=== PATIENT | male | born 1970 | race Caucasian/White ===

== ENCOUNTER 2016-04-13 17:48 | Emergency (ER) | payer OTHER ==
[~2016-04-13] VITALS: Ht 185.4 cm; Wt 110.4 kg
[2016-04-13 17:50] VITALS: TEMP 37; Ht 185.4 cm; Wt 110.4 kg
[2016-04-13] MEDS ORDERED: OXYCODONE/ACETAMINOPHEN 5-325 TAB PO STA (18:10)
[2016-04-13 18:21] VITALS: BP 137/90; PULSE 77; O2SAT 95
[2016-04-13] MEDS ORDERED: VLT500 PO (18:27)
[2016-04-13] MEDS ORDERED: OXYC-57 PO (18:33)
--- NOTE | 2016-04-13 18:35 | EMERGENCY ROOM VISIT NOTE ---
History First contact with patient: 17:53 Chief Complaint: CALF PAIN Stated Complaint: POPPING OF R CALF FOLLOWED BY IMMENSE PAIN History of Present Illness The patient is a 45 year old male who presents to the Emergency Room with complaints of right calf pain. The patient states that he was running approximately one and half hours ago when he felt a sudden popping sensation and pain in his right calf. He states it felt like someone shot him in the calf. He has had difficulty walking and intense pain in the calf since then. He rates the discomfort at 8/10. He denies any previous injuries. The patient does report a history of right knee problems and has seen orthopedics regarding this. He did receive an injection in the right knee 2 months ago. The patient is concerned because he states he took 2 doses of ciprofloxacin for urinary symptoms 1 week ago. He states that he read on the Internet that this may cause tendon rupture. The patient denies any numbness or weakness. He denies any other injuries. Review of Systems A complete 6 Review of Systems was discussed with the patient, with pertinent positives and negatives listed in the History of Present Illness. All remaining Review of Systems questions can be considered negative unless otherwise specified. Social History Smoking Status: Never Smoker Current/Historical Medications Scheduled Valacyclovir HCl (Valacyclovir HCl), 500 MG PO DAILY Scheduled PRN Oxycodone/Acetaminophen 5MG/325MG (Percocet 5MG/325MG), 1-2 TABS PO Q4H PRN for Pain Allergies Uncoded Allergies: PENICILLIN (Allergy, Severe, ANAPHYLAXIS, 04/13/16) Physical Exam Vital Signs Date Time Temp Pulse Resp B/P Pulse Ox O2 Delivery O2 Flow Rate FiO2 04/13/16 18:21 77 18 137/90 95 Room Air 04/13/16 17:50 37.0 81 18 147/87 97 Room Air Physical Exam VITALS: Vitals are noted on the nurse's note and reviewed by myself. Vital signs stable. GENERAL: This is a 45-year-old male, in no acute distress, nondiaphoretic, well- developed well-nourished. SKIN: No erythema, warmth or ecchymosis. MUSCULOSKELETAL: There is no obvious deformity. There is some edema and significant tenderness of the medial aspect of the proximal right gastrocnemius muscle. Patient has full plantar flexion but decreased dorsiflexion. NEURO: Patient was alert and oriented to person place and time. Normal sensation to light and sharp touch. Deep tendon reflexes 2+. Medical Decision & Procedures Medications Administered Medications (Trade) Dose Ordered Sig/Renetta Route Start Time Stop Time Status Last Admin Dose Admin Oxycodone/ Acetaminophen (Percocet 5-325mg Tab) 1 tab NOW STAT PO 04/13/16 18:10 04/13/16 18:11 DC 04/13/16 18:21 1 TAB Medical Decision Differential diagnosis includes tendon rupture, gastrocnemius tear, gastrectomy strain, among others. The patient was evaluated as above. Clinically, he has an injury to the medial aspect of the proximal right gastrocnemius muscle. I do not feel any imaging is necessary at this time. The patient is established with [facility] and was instructed to follow-up with them this week for further evaluation. He was placed in an Eliecer wrap and given crutches. He was given 1 Percocet tablet here as well as a short prescription. He was instructed to take anti-inflammatories and ice the area frequently. He verbalized understanding of my assessment and treatment plan and was discharged home in good condition. [place] Drug Monitoring Program Search Results: patient reviewed within database Impression Primary Impression: Injury of calf Departure Information Dispostion Home / Self-Care Condition GOOD Prescriptions Oxycodone/Acetaminophen 5MG/325MG (PERCOCET 5MG/325MG) Tab 1-2 TABS PO Q4H Y for Pain, #15 TAB For Initial Treatment Prov: Casie Petersen .SAURABH 04/13/16 Referrals Jackson Goodrich M.D. (PCP) Дмитрий Hitchcock M.D. Patient Instructions My [facility] Additional Instructions You have been treated in the Emergency Department for a Calf Injury. You have received pain medicine in the emergency department which impairs your ability to operate a vehicle. It is illegal for you to drive after receiving these medicines. You have been prescribed Percocet to be used for pain control. This is a narcotic medication. You cannot drive or consume alcohol while on this medicine. This medicine should only be used for pain that cannot be controlled with csan-xsq-gcfziwu pain medicines. For pain control, you can use the following psef-rfc-gnntqxi medicines (if >12 yo): - Regular strength (325mg/tab) Tylenol (acetaminophen) 2 tabs every 4-6 hours as needed. Do not exceed 12 tablets in a 24 hour period. Avoid taking more than 4 grams (4000 mg) of Tylenol per day. This includes any other sources of acetaminophen you may take on a regular basis. - Regular strength (200 mg/tab) Advil (ibuprofen) 1-2 tabs every 4-6 hours as needed. Do not exceed a dose of 3200 mg per day. If this is a recent injury (<24 hrs), ice can be applied to the area of pain for the first 3 days to help decrease pain and inflammation. You have been provided the number for an Orthopaedic Surgeon. You should call this number as soon as possible to establish a follow-up visit from today's Emergency Department visit. Use the crutches to keep weight off of the affected leg until follow-up with orthopedics. Return to the Emergency Department if your current symptoms worsen despite treatment course outlined above, or if you develop any of the following symptoms : intractable pain despite aforementioned treatment course or new onset of numbness or tingling of the foot.
== END 2016-04-13 18:51 | disposition home or self-care (01) ==
LOC: C.EDB 17:50 → C.EDD 18:51
DX: S89.91XA Unspecified injury of right lower leg, initial encounter (principal); X58.XXXA Exposure to other specified factors, initial encounter; Z79.899 Other long term (current) drug therapy; Z88.0 Allergy status to penicillin

== ENCOUNTER → 2016-04-14 | Outpatient (CLI) | payer OTHER ==
[~2016-04-14] MED LIST: OXYC-57 PO; VLT500 PO
--- NOTE | 2016-04-14 13:08 | DIAGNOSTIC IMAGING REPORT ---
RIGHT TIBIA AND FIBULA 2 VIEWS CLINICAL HISTORY: Calf pain. Recent injury. FINDINGS: AP and lateral views of the right tibia and fibula are obtained. No prior studies are available for comparison at the time of dictation. The skeletal structures are well mineralized. No fracture is seen in the right tibia or fibula. The knee and ankle joints are grossly maintained. Minimal soft tissue edema is suggested in the calf. IMPRESSION: Minimal soft tissue edema is suggested in the calf. No acute bony abnormality is identified in the right tibia or fibula. Electronically signed by: Roger Hinton M.D. 04/14/2016 1:07 PM Dictated Date/Time: 04/14/2016 1:06 PM
== END | disposition home or self-care (01) ==
LOC: C.RDSM 11:11
PROVIDERS: ATTEND Physical Medicine & Rehabilitation Sports Medicine
DX: M79.661 Pain in right lower leg (principal)

== ENCOUNTER → 2016-11-19 | Outpatient (CLI) | payer OTHER ==
[~2016-11-19] VITALS: Ht 185.4 cm; Wt 107.1 kg
[~2016-11-19] MED LIST changes: -OXYC-57 PO
[2016-11-19 13:55] VITALS: BP 124/82; PULSE 80; Ht 185.4 cm; Wt 107.1 kg
== END | disposition home or self-care (01) ==
LOC: C.NEUR 13:30
PROVIDERS: ATTEND Internal Medicine Pulmonary Disease
DX: R41.3 Other amnesia (principal); G47.33 Obstructive sleep apnea (adult) (pediatric)

== ENCOUNTER → 2016-11-30 | Outpatient (CLI) | payer OTHER ==
--- NOTE | 2016-12-01 07:51 | PAP/PSG TECHNICIAN REPORT ---
[facility] Supervisor Vendor Quality Polysomnogram Report Study name: None Report date: 12/01/2016 Study date: 11/30/2016 Referring Physician: Jackson Goodrich M.D. Name: EMILY GARZA Interpreting Physician: Eric Silveira D.O. Date of : 1970 Supervisor Vendor Quality: Kathleen Akbar, PSGT. Sex: Male Age: 46 StudyType: PSG Weight: 235 lbs Height: 46 years, Height 6' 1" BMI: 31 Medications: Temazepam 30 mg. Patient History 46 yr. old male presents to the sleep lab for a diagnostic sleep study. Pt. states that he has memory dysfunction, and impaired daytime functioning. States that he falls asleep easily, but wakes often until 3 am when he gets up for the day. Patient states that he does not nap during the day.Ess = 12. Parameters Monitored NPSG: E1-M2, E2-M1, Fp1-M2, Fp2-M1, F3-M2, F4-M2, F4-M1, C3-M2, C4-M2, C4-M1, O1-M2, O2-M2, O2-M1, T3-M2, T4-M1, P3-M2, P4-M1, CHIN1, CHIN2, HR, EKG, Legs, PFLOW, SNOR, FLOW, CFLOW, Tidal Volume, THOR, ABDO, SpO2, PLTH, CPRESS, ETCO2 Wave, ETCO2, pH Sleep Architecture Sleep Stages Time at Lights Off 9:38:45 PM STAGES Time (min.) TST (%) Time at Lights On 3:56:45 AM Wake 97.0 -- Total Recording Time (TRT) 377.00 min. N1 32.5 12 Total Sleep Period (TSP) 372.5 min. N2 170.5 61 Total Sleep Time (TST) 280.0min. N3 16.0 6 Awake Time 97.0 min. REM 61.0 22 Wake after Sleep Onset 95.5 min. Sleep Efficiency (SE) 74 % Sleep Onset Latency (WILLIAM) 2.5 min. Number of Stage 1 Shifts None Awakenings 9 Stage Changes 36 Number of REM periods 3 REM 61.0 22 REM Latency 75.0 min. NREM 219.0 78 Body Position Analysis Supine Right Left Side Prone Vertical Total Sleep Time (min.) 212.8 87.9 9.0 96.88 0.0 0.0 Total Sleep Time (%) 65% 31% 3% 35 0% N/A% Total Sleep Time REM (min.) 35.8 25.2 0.0 None 0.0 0.0 Total Sleep Time NREM (min.) 147.3 62.7 9.0 None 0.0 0.0 Intermittent Wake (min.) 29.6 0.0 67.4 None 0.0 0.0 Total Sleep Period (%) 56% None None None None None Arousals Myoclonus (PLM) * Events Count Index Events Count Index Spontaneous 32 7 Events Awake (PLMW) 4 2.5 Respiratory 4 0.9 Events Asleep w/ Arousal (PLMA) 5 1.1 PLM 5 1 Events Asleep w/o Arousal (PLMS) 69 14.8 Snoring 3 1 Total Asleep 74 15.9 Total 44 9 Total 78 12 Respiratory Analysis * CA OA MA CH H RERA Total Count 0 1 0 0 31 0 32 Index 0.0 0.2 0.0 0 6.6 0 6.9 Mean Duration 0.0 12.3 0.0 0.00 28.6 0.0 28.1 Longest Duration 0.0 12.3 0.0 0.00 0.0 0.0 57.9 Respiratory Event Summary Total Supine ~Supine Right Left Prone REM NREM Apneas Count 1 1 0 0 0 N/A 0 1 Index 0.2 0 0 0.0 0.0 N/A 0 0 Hypopneas (4% Desat) Count 31 31 0 0 0 N/A 15 16 Index 6.6 10.2 0 0.0 0.0 N/A 14.8 4.4 Apneas & All Hypopneas Count 32 32 0 0 0 N/A 15 17 Index 6.9 10 0 0 0 N/A 14.8 4.7 Respiratory Events (Inbound Ingredient Logistics Specialist+All Hyp+RERA) Count 32 32 0 0 0 N/A 15 17 Index 6.9 10 0 0.0 0.0 N/A 14.8 4.7 Respiratory Related Arousal Count 4 32 0 0 0 N/A 2 2 Index 0.9 1 0 0 0 N/A 2 1 Snoring Analysis Supine Right Left Prone REM NREM Total Snore duration 15.0 min Snores count 592 39 2 N/A 119 514 633 Snore mean duration 1.4 Sec Snores index 194 27 13 N/A 117.0 140.8 135.6 TST with snoring (%) 5.3% Desaturation Event Summary: Minimum %SpO2 Event Count Mean/Min/Max Duration(sec.) Desaturation Index % Time In Bed > 90 31 30.0 / 9.5 / 60.0 5.5 94.9 86 - 90 0 N/A 0.0 4.5 81 - 85 0 N/A 0.0 0.6 76 - 80 0 N/A 0.0 0.0 71 - 75 0 N/A 0.0 0.0 66 - 70 0 N/A 0.0 0.0 61 - 65 0 N/A 0.0 0.0 56 - 60 0 N/A 0.0 0.0 51 - 55 0 N/A 0.0 0.0 < 50 0 N/A 0.0 0.0 Total REM NREM Awake <50% 0.0 min. 0.0 min. 0.0 min. 0.0 min. 51 - 60% 0.0 min. 0.0 min. 0.0 min. 0.0 min. 61 - 70% 0.0 min. 0.0 min. 0.0 min. 0.0 min. 71 - 80% 0.0 min. 0.0 min. 0.0 min. 0.0 min. 81 - 90% 18.2 min. 5.2 min. 10.3 min. 2.7 min. 91 - 100% 340.6 min. 55.6 min. 195.9 min. 89.1 min. Average 93 93 93 94 Minimum SpO2 71 85 82 71 Desaturation Event Index 4.9 15.7 4.1 0.0 # Desat. Events below 89% 5 4 1 N/A Time(%) with Saturation below 89% 1.0 0.3 0.3 0.3 Time(min.) with Saturation below 89% 3.4 1.2 1.2 1.1 Time (mins) REM (mins) NREM (mins) % of TST SpO2 Below 90% 16 11 N5 1.8 SpO2 Below 88% 2 0 0 1 Heart Rate Analysis Min (bpm) Max (bpm) Average (bpm) Awake 52 127 63 NREM 51 87 62 REM 54 92 63 Overall 51 92 62 Supplemental O2 Values Minimum O2 level: None Value Start Time End Time Supervisor Vendor Quality Comments PSG Study Mr. Garza slept in the right, left, and supine positions. No cardiac arrhythmia or PLM's noted. No bruxism noted. Snoring was noted and scored as a 2 on a scale of 1 through 5. (0=no snoring, 5=snoring loud enough to be heard through a closed door or down the ordonez way) awoke to use the restroom zero times during the night. Mr. Garza stated, I did not sleep as well as I do when I am in my own bed. The final report will be interpreted and signed by a sleep physician. The completed physician report will then be placed in the patient medical record. Therapy (cm H2O) 0 TIB (min.) 377.0 TST (min.) 280.0 Sleep Onset (min.) 2.5 REM Onset From Sleep (min.) 75.0 Sleep Efficiency % 74 Wakefulness (%) 26 Wakefulness (min.) 97.0 NREM 1 (%) 12 NREM 1 (min.) 32.5 NREM 2 (%) 61 NREM 2 (min.) 170.5 NREM 3 (%) 6 NREM 3 (min.) 16.0 REM (%) 22 REM (min.) 61.0 # Arousals 44 Arousal Index 9 # Snore 633 Snore Index 135.6 AHI 6.9 AHI Supine 10 AHI Non-Supine 0 NREM AHI 4.7 REM AHI 14.8 RDI 6.9 # Obstructive Apnea 1 # Central Apnea 0 # Mixed Apnea 0 # Hypopneas 31 RERAs 0 Total Respiratory Events 33 Time Below SpO2 89% (min.) 2.3 Mean NREM SpO2 (%) 93 Mean REM SpO2 (%) 93 Mean Sleep SpO2 (%) 93 Min NREM SpO2 (%) 82 Min REM SpO2 (%) 85 Position Supine (min.) 212.8 Position Non-supine (min.) 96.9 LM Index Sleep 15.9 LM Index NREM 18.6 LM Index REM 5.9 Mean Heart Rate (bpm) 62 Min Heart Rate (bpm) 51
--- NOTE | 2016-12-01 17:05 | Sleep Study ---
Sleep Study Report Date of Service: 11/30/2016 Sleep Study Report Clinical data: The patient is a 46-year-old male. He has a chief complaint of disturbed nocturnal sleep and memory problems. The patient has difficulty sleeping after 3 a.m.. He had 2 prior sleep studies done. The 1st 1 in 2010 in [place] reported mild sleep apnea. The 2nd study done in [place] did not show sleep apnea. The patient completed the [place] Sleepiness Scale and had a score of 13. His BMI is elevated at 31. The patient however is very physically fit in spite of the BMI. This was an in-lab diagnostic polysomnography. Sleep architecture: The total sleep period was 372.5 minutes. The total sleep time was 280.0 minutes. The sleep efficiency was moderately reduced to 74 percent. The sleep latency was short at 2.5 minutes. Wake after sleep onset was elevated to 95.5 minutes. The sleep latency was 75 minutes. Sleep consisted of stage N1 12 percent, stage N2 61 percent, stage N3 6 percent , stage REM 22 percent. Arousal data: The patient had a total of 44 arousals including 32 spontaneous arousals, 4 respiratory arousals, 5 PLM arousals, and 3 snoring arousals. The arousal index was 9. PLM data: The patient had a total of 74 periodic limb movements of sleep for a PLM index of 15.9. There were 5 arousals associated with limb movements for a PLM arousal index of 1.1. EKG: The underlying cardiac rhythm was normal sinus. The cardiac rates ranged from 51 to 92 beats per minute. The average heart rate was 62 beats per minute. No arrhythmia was seen. Respiratory data: The patient had a total of 32 respiratory events including 1 obstructive apnea and 31 hypopneas. Hypopneas were scored according to the 4 percent desaturation rule. The longest apnea was 12.3 seconds. The mean duration of the hypopneas was 28.6 seconds. The apnea-hypopnea index was 6.9 events per hour. This reflects mild sleep apnea. Oximetry data: The average saturation was 93 percent. The minimum saturation recorded was 71 percent. This clearly was technical however. He had only 2 minutes with saturations less than 88 percent. Tool Engine Lathe Set Up Operator comments: The patient slept on the right, left, and supine positions. No cardiac arrhythmia noted. No bruxism noted. Snoring was noted and scored as a 2 on a scale of 1 through 5. The patient indicated he did not sleep as well as he does in his own bed. Impressions: 1. Obstructive sleep apnea-mild 2. Periodic limb movement disorder Comments: This sleep on the night of the sleep study parallels with what the patient's history was. He falls asleep readily. He sleeps for approximately an hour and then has an awakening. Ultimately keeps waking up and then subsequently cannot sleep. He had very little sleep after 2:40 a.m.. He did have mild obstructive sleep apnea. It seems unlikely that this degree of sleep apnea would be accounting for his insomnia as well as his memory issues. However improvement with treatment cannot be excluded. Thus consideration is given to treatment with nasal CPAP therapy as a trial basis to see if his symptoms improved. His oxygenation was not significantly abnormal. He had a modest number of limb movements but with few arousals. It seems unlikely the limb movements are a significant contributor to his symptoms. Recommendations: 1. Consideration is given to a trial of nasal CPAP. This could be done by a CPAP titration in the sleep lab or with treatment with auto CPAP. 2. Weight loss is advised in light of the elevation of body mass index at 31. 3. Further suggestions may be made following the trial of nasal CPAP. 4. The patient should be advised the appropriate principles of sleep hygiene including having a regular sleep-wake schedule and attempting to increase his total sleep time. Copies To 1: Jackson Goodrich M.D.; Eric Silveira,
== END | disposition home or self-care (01) ==
LOC: C.NEUR 21:00
PROVIDERS: ATTEND Internal Medicine Pulmonary Disease
DX: G47.33 Obstructive sleep apnea (adult) (pediatric) (principal)

== ENCOUNTER → 2017-02-04 | Outpatient (CLI) | payer OTHER ==
[~2017-02-04] VITALS: Ht 185.4 cm; Wt 109.3 kg
[2017-02-04 11:13] VITALS: BP 137/87; PULSE 72; Ht 185.4 cm; Wt 109.3 kg
== END | disposition home or self-care (01) ==
LOC: C.NEUR 11:00
PROVIDERS: ATTEND Internal Medicine Pulmonary Disease
DX: G47.33 Obstructive sleep apnea (adult) (pediatric) (principal)

== ENCOUNTER → 2017-04-16 | Outpatient (CLI) | payer OTHER ==
--- NOTE | 2017-04-16 08:42 | DIAGNOSTIC IMAGING REPORT ---
R LOWER EXT JOINT WITHOUT CLINICAL HISTORY: 46 years-old Male presenting with RIGHT KNEE PAIN. TECHNIQUE: Multisequence, multiplanar MR imaging of the right knee was performed without the use of intravenous contrast. IV contrast: None. COMPARISON: Radiographs from 12/25/2016. FINDINGS: Localizer images: Unavailable. No bony edema. Bone island noted in the lateral femoral condyle. Full-thickness articular cartilage loss at the medial most aspect of the medial tibial plateau with subchondral cystic change. Osteophytosis also noted. Minimal increased signal intensity and irregularity of the lateral facet of the patellar cartilage. No irregularity of the apposing trochlear cartilage. Complex tear of the posterior horn body junction of the medial meniscus, which approaches the inferior articular surface. Significant attenuation of the body of the medial meniscus, which is slightly extruded laterally. There is suspected disruption of the meniscofemoral ligamentous attachment of the medial meniscus. The anterior horn is largely preserved. Degenerative changes of the posterior horn of the lateral meniscus suspected. Anterior and posterior cruciate ligaments intact. Medial collateral ligament intact. Lateral collateral ligament complex including the biceps femoris tendon, fibular collateral ligament, popliteus tendon, and iliotibial band intact. Quadriceps and patellar tendons intact. Small knee joint effusion. No popliteal cyst. Normal muscle bulk and muscle signal intensity. IMPRESSION: 1. Complex tear of the posterior horn body junction with severe attenuation of the medial meniscal body and suspected disruption of the medial meniscofemoral ligament. 2. Degenerative changes of the posterior horn of the lateral meniscus. 3. Full thickness articular cartilage loss with subchondral cystic change and osteophytosis at the medial aspect of the medial tibial plateau. 4. Minimal degenerative changes of the lateral patellar facet articular cartilage. 5. Small knee joint effusion. Electronically signed by: Дмитрий Martin M.D. 04/16/2017 8:41 AM Dictated Date/Time: 04/16/2017 8:35 AM
== END | disposition home or self-care (01) ==
LOC: C.MRIBC 07:38
PROVIDERS: ATTEND Family Medicine
DX: M17.11 Unilateral primary osteoarthritis, right knee (principal)

== ENCOUNTER → 2017-04-23 | Outpatient (CLI) | payer OTHER ==
[~2017-04-23] MED LIST changes: +HYDR-5688 PO; +TEMA7.5C13 PO
== END | disposition home or self-care (01) ==
LOC: C.RDSM 04:04
PROVIDERS: ATTEND Orthopaedic Surgery
DX: M25.561 Pain in right knee (principal)

== ENCOUNTER → 2017-05-10 | Day surgery (SDC) | payer OTHER ==
[2017-04-29 07:31] VITALS: Ht 185.4 cm; Wt 106.8 kg
[~2017-05-10] VITALS: Ht 185.4 cm; Wt 106.8 kg
[~2017-05-10] MED LIST changes: +ATROPINE SULFATE 0.1 MG/ML 5ML SYR IV PRN; +DEXAMETHASONE SOD INJ 4 MG/ML VIAL ONE; +EpHEDrine SULFATE INJ 50 MG/ML AMP IV PRN; +EpINEphrine INJ 1MG/ML AMP 1 MG/ML AMP ONE; +FENTANYL CITRATE INJ 50 MCG/1 ML 2 ML VIAL ONE; +HYDROmorphone INJ 1 MG/ML SYR IV PRN; +LACTATED RINGER'S 1000ML 1,000 ML IV SCH; +LIDO 2%/EPINEPHRINE 1:100000 20 ML VIAL INFIL ONE; +LIDOCAINE HCL 2% 2 ML VIAL (20MG/ML) ONE; +METOCLOPRAMIDE HCL INJ 5 MG/ML 2 ML VIAL IV PRN; +MIDAZOLAM HCL 1 MG/ML 2ML VIAL ONE; +MoRPHine SULFATE 2 MG/ML CARP IV PRN; +MoRPHine SULFATE 4 MG/ML 1 ML CARP\\VIAL IV PRN; +ONDANSETRON INJ 2 MG/ML 2 ML VIAL IV PRN; +ONDANSETRON INJ 2 MG/ML 2 ML VIAL ONE; +OXYCODONE/ACETAMINOPHEN 5-325 TAB ONE; +OXYCODONE/ACETAMINOPHEN 5-325 TAB PO PRN; +PROPOFOL IV EMULSION 10 MG/ML 20 ML VIAL IV ONE; +ROPIVACAINE 0.5% 5 MG/ML 30 ML VIAL ONE; +SODIUM CHLORIDE 0.9% 1000ML 1,000 ML IV SCH
[2017-05-10] MEDS: CLINDAMYCIN PHOS 150 MG/ML 2 ML VIAL IV SCH ×2 (08:39→09:04)
--- NOTE | 2017-05-10 09:21 | History & Physical Bridge - SC ---
H&P Re-Evaluation Bridge Note: I have examined the patient, reviewed the History & Physical and in the interval since the performance of the History & Physical I have noted the following changes of clinical significance: No changes noted
--- NOTE | 2017-05-10 11:30 | [facility] Post Operative Brief Note ---
Immediate Operative Summary Operative Date May 10, 2017. Pre-Operative Diagnosis Right Knee Medial Meniscus Tear, Proximal Tibia Subchondral Fracture Post-Operative Diagnosis same as preop Procedure(s) Performed Right Knee Arthroscopic Partial Medial Meniscectomy, injection of Calcium Phospate Cement To Treat Right Proximal Tibia Fracture Surgeon Dr. Levine Rodent Control Worker Surgeon(s) SAURABH Mancera Estimated Blood Loss 25ML Findings Consistent with Post-Op Diagnosis Fluids (cc crystalloids) 650 cc Specimens none Drains None Anesthesia Type General Complication(s) Extrusion of cement into soft tissues - removed through posteromedial approach to the knee Disposition Accompanied Pt To Recovery: no Disposition: Recovery Room / PACU
--- NOTE | 2017-05-10 11:45 | [facility] Operative Report ---
Operative Report Operative Date May 10, 2017. Pre-Operative Diagnosis Right Knee Medial Meniscus Tear, Proximal Tibia Subchondral Fracture Post-Operative Diagnosis same as preop Procedure(s) Performed Right Knee Arthroscopic Partial Medial Meniscectomy, injection of Calcium Phospate Cement To Treat Right Proximal Tibia Fracture Surgeon Dr. Levine Lithographic Platemaker Surgeon(s) SAURABH Mancera Estimated Blood Loss 25ML Fluids 650 cc Specimens none Drains None Anesthesia Type General Complication(s) Extrusion of cement into soft tissues - removed through posteromedial approach to the knee Disposition no Recovery Room / PACU I attest to the content of the Intraoperative Record and any orders documented therein. Any exceptions are noted below.
--- NOTE | 2017-05-10 11:49 | Discharge Instructions ---
Discharge Instructions Date of Service May 10, 2017. Admission Reason for Admission: Right Knee Medial Meniscus Tear, Proximal Tibia Fx Discharge Discharge Diagnosis / Problem: Right knee medial meniscus tear, Prox tibia fx Discharge Goals Goal(s): Decrease discomfort, Improve function, Increase independence Activity Recommendations Activity Limitations: as noted below Lifting Limitations: none Exercise/Sports Limitations: until after follow-up appointment May Resume Sexual Activity: when tolerated Shower/Bathe: tomorrow, keep incision dry Driving or Machine Use: No driving until cleared by provider education specialist Weightbearing Status: Right weightbearing (as tolerated with crutch aide) . Instructions / Follow-Up Instructions / Follow-Up Post-operative Instructions Dear Patient and Family/Friends, Before you are discharged from the hospital, it is important to know what to expect when you get home after surgery. To that end, we have created this sheet of discharge instructions which covers many commonly asked questions. Make sure you go through this sheet in its entirety with your nurse before you are discharged. Please note that we will go over the specifics of your surgery and recovery when you return for your first post-operative visit. Sincerely, Dr. Carpenter Pain Expect to be in a fair amount of pain after surgery. Remember, our goal is not to eliminate your pain, but to make it tolerable. It is a good idea to stay ahead of your pain by taking the medications you were prescribed once you get home. Typically, the pain starts improving 3-7 days after surgery. You should start weaning off the narcotic pain medication (oxycodone, hydrocodone, hydromorphone, morphine) as soon as your pain improves. Please call our office if your pain is not adequately controlled. Ice Ice your operative site at least 5 times a day for 15-30 minutes at a time. Make sure you have a thin cloth between the ice or cooling unit and your skin to prevent walker bite. This is especially important if you received a nerve block. Continue icing your operative site for the first 5-7 days after surgery , then as needed. Diet/Nausea/Vomiting Start by drinking clear liquids and eating crackers. If you can tolerate this, then you may resume your normal diet. If you feel nauseated or vomit, take Zofran/ondansetron (if prescribed). Please call our office if you have intractable nausea or vomiting, or, if after hours, you may go to the Emergency Room for help. Constipation Constipation is a common side effect of narcotic pain medication. If you have not had a bowel movement within 2 days after surgery, we recommend purchasing an over the counter laxative such as Milk of Magnesia, Dulcolax, or Miralax from a local pharmacy, and taking it as instructed. Call our clinic if any questions. Slings and Braces If you were placed in a sling or brace, it must be worn at all times, including sleep. You may remove your sling or brace for physical therapy, home exercises , and showering. The length of time you will be in your brace and range of motion restrictions depends on what surgery you had; these details will be reviewed at your first post-operative appointment. Weight bearing and Range of Motion. Do not bear any weight through your operative extremity immediately after surgery. If you had upper extremity surgery, do not lift anything with that arm. If you are in a knee brace, keep it locked in place until your follow-up. We will discuss your weight bearing, range of motion, and lifting restrictions in detail at your first post-operative appointment. Continuous Passive Motion (CPM) Machine If you were prescribed a CPM machine, it will start after your first post- operative appointment, at which time we will give you instructions on the range of motion settings and duration of treatment Physical therapy You will be given a prescription for physical therapy or occupational therapy at your first post-operative appointment. Typically, patients start therapy within 1 week of surgery Wound care and showering We will inspect your wound at your first post-operative visit, and may do a dressing change at that time. Most patients will be in a water-proof dressing that is removed 14 days after surgery. It is normal to see some dried blood on the dressing. Do not remove your dressing, paper strips or sutures yourself unless you are given permission. Showering is allowed the day after surgery. Do not scrub or remove any dressings. The wound should not be submerged underwater (i.e. in a bathtub or pool) until 4 weeks after surgery MATIAS stockings If you were given white stockings, these are to be worn at all times except to shower (on both legs) for the first 2 weeks after surgery. Driving You may not drive while taking narcotic pain medication or while in a cast, splint, sling or brace. You, the patient, need to make the final determination about when you are safe to drive, however, the earliest you may consider driving after surgery is below: Hand/Wrist/Elbow Surgery: 3 days Shoulder Surgery: 2 weeks Hip,/Knee/Ankle Surgery: 4 weeks Fracture repair: 6 weeks Return to Work Your return to work depends on what surgery was done and what type of work you do. Please bring any paperwork your employer needs completed to your first post -operative visit. Also, bring a description of your job duties, as this helps us to understand what risks you may face at work. Travel Avoid long distance travel (greater than 1 hour) in airplanes and cars for the first 6 weeks after surgery. If you must travel, you need to have a Doppler ultrasound done before you travel to rule out a blood clot in your legs. Follow-up You should have a follow-up appointment already scheduled 1-2 days after surgery. If not, please contact our office to make this appointment before you leave the hospital. When to call the office It is normal to have swelling and bruising in the limb that was operated on. This will improve with time. It is also normal to have fevers for the first 2 days after surgery. Reasons you should call your doctor include: Uncontrolled pain; Nausea, vomiting, or constipation that does not improve with medication; Fevers over 101.5, chills, sweats; Drainage or bleeding from the wound; Foul odor; Spreading areas of redness; Any other concerns Current Hospital Diet Patient's current hospital diet: Discharge Diet Recommended Diet: Regular Diet Procedures Procedures Performed: Right Knee Arthroscopic Partial Medial Meniscectomy, injection of Calcium Phospate Cement To Treat Right Proximal Tibia Fracture Pending Studies Studies pending at discharge: no Medical Emergencies . Who to Call and When: Medical Emergencies: If at any time you feel your situation is an emergency, please call 911 immediately. . Non-Emergent Contact Non-Emergency issues call your: Primary Care Provider Call Non-Emergent contact if: you have a fever, temperature is above 101.5, your pain is not controlled, your pain is worsening, wound has increased drainage, you have any medication questions . "Provider Documentation" section prepared by Luke Noe. . [place] Drug Monitoring Program Search Results: patient reviewed within database, no issues identified, see additional documentation
[2017-05-10] MEDS: FENTANYL CITRATE INJ 50 MCG/1 ML 2 ML VIAL IV PRN ×3 (11:55→12:10)
[2017-05-10 12:30] VITALS: TEMP 36.4
--- NOTE | 2017-05-10 12:49 | Anesthesia Progress Nt - [facility] ---
Anesthesia Post Op Note Date & Time May 10, 2017 at 12:49 Vital Signs Pain Intensity: 4 Vital Signs Past 12 Hours Date Time Temp Pulse Resp B/P (MAP) Pulse Ox O2 Delivery O2 Flow Rate FiO2 05/10/17 12:22 85 11 05/10/17 12:22 85 11 98 05/10/17 12:21 144/81 05/10/17 12:19 87 15 05/10/17 12:19 88 15 94 05/10/17 12:16 139/79 05/10/17 12:15 36.8 82 12 139/79 97 Room Air 05/10/17 12:14 87 12 05/10/17 12:14 88 12 96 05/10/17 12:13 86 19 05/10/17 12:13 84 19 96 05/10/17 12:11 144/95 05/10/17 12:08 81 8 05/10/17 12:08 80 8 96 05/10/17 12:06 129/89 05/10/17 12:03 80 14 99 05/10/17 12:03 81 14 05/10/17 12:01 140/92 05/10/17 11:58 85 22 05/10/17 11:58 85 22 96 05/10/17 11:56 133/87 05/10/17 11:53 87 15 99 05/10/17 11:53 87 15 05/10/17 11:51 145/93 05/10/17 11:48 75 9 98 05/10/17 11:48 76 9 05/10/17 11:46 126/84 05/10/17 11:44 130/88 05/10/17 11:43 36.1 87 12 130/88 97 Mask 6 05/10/17 08:11 36.7 66 18 137/82 (100) 99 Room Air Notes Mental Status: alert / awake / arousable, participated in evaluation Pt Amnestic to Procedure: Yes Nausea / Vomiting: adequately controlled Pain: adequately controlled Airway Patency, RR, SpO2: stable & adequate BP & HR: stable & adequate Hydration State: stable & adequate Anesthetic Complications: no major complications apparent
--- NOTE | 2017-05-10 13:03 | OPERATIVE REPORT ---
DATE OF OPERATION: 05/10/2017 PREOPERATIVE DIAGNOSES: Right knee medial meniscus tear and a subchondral fracture of the medial tibial plateau. POSTOPERATIVE DIAGNOSES: Same and extensive synovitis. OPERATIONS PERFORMED: 1. Injection of calcium phosphate cement to treat subchondral proximal tibial fracture. 2. Right knee arthroscopy with synovectomy and partial medial meniscectomy. SURGEON: Дмитрий Carpenter MD TERRITORY ACCOUNT EXECUTIVE: Diya Noe. ESTIMATED BLOOD LOSS: 25 mL. IV FLUIDS: 650 mL of crystalloid. SPECIMENS: None. COMPLICATIONS: Extrusion of a calcium phosphate cement into the soft tissues just anterior to the semimembranosus. This was removed through a separate posteromedial incision. 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 He would like to stay active running. Physical examination shows tenderness along the proximal medial tibia. He has also medial joint line tenderness. MRI shows a subchondral fracture with subchondral cyst formation in the proximal medial tibia. He also has a degenerative medial meniscus tear. His arthritis is mild on his x-rays. I had a long discussion with him about the risks and benefits of surgery, alternatives to surgery and expected outcomes. He understands that due to early arthritis he has in his knee that this may preclude him from a high level activities even despite our best efforts with surgery. After reviewing all these, he elected to proceed. All questions were answered. Informed consent was signed. OPERATIVE FINDINGS: 1. 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 2. Trochlea showed grade 1 chondromalacia. 3. Medial and lateral gutters were free of any loose bodies. 4. The medial compartment showed a degenerative tear of the body of the medial meniscus extending into the posterior horn. He was already clearly a meniscal deficient, with over 80% of the body of the meniscus removed from his prior 2 knee scopes. There was an area of grade 4 chondromalacia involving the medial tibial plateau approximately 8 x 10 mm in size with well-defined margins. He had some evidence of prior steroid injections as well with some precipitate of the steroid medication in the cartilage of the medial femoral condyle and medial meniscus. 5. The ACL and the PCL were intact. 6. The anterior compartment showed both medial and lateral synovitis. 7. The lateral compartment showed some fraying at the posterior root, but the remainder of the lateral meniscus was intact. He had grade 3 chondral wear of the lateral tibial plateau and grade 1 softening of the lateral femoral condyle diffusely. The calcium phosphate cement was injected into the subchondral fracture. Cement that extruded in front of the semimembranosus was removed through a posteromedial incision. A partial medial meniscectomy was performed as well as a synovectomy of the medial and lateral knee. DESCRIPTION OF THE OPERATION: The patient was identified in the preoperative holding area, where surgical site was marked. He was brought back to main operating room, where he was placed on the operating room table and general anesthesia was administered. A bump was placed underneath the operative hip. All bony prominences were padded. Perioperative antibiotics were administered. He was prepped and draped in the normal sterile fashion. Prior to incision, a multidisciplinary timeout was called. All in the room were in agreement. We began by performing the calcium phosphate injection procedure to treat his subchondral fracture. C-arm was brought in and the injection site was localized on the AP view initially. We then made a small stab incision and placed the trocar sleeve down on the bone until it was optimized in the AP view. We then swung the C-arm to the lateral view. We obtained a perfect lateral view of the knee. We then drilled the needle under fluoroscopic guidance towards the posterior cortex. We then removed the inner trocar. The side vents were directed medially. We then injected the calcium phosphate cement in both the medial direction as well as superiorly. Unfortunately, some of the cement extruded out the posterior aspect of the knee, indicating a small perforation in the posterior cortex. We therefore pulled the needle back approximately a cm and injected the remainder of the cement in this location that would be further from the posterior knee. Our fluoroscopic images were then reviewed showing a moderate amount of cement anterior to the semimembranosus. In order to decrease the irritation of the cement on the semimembranosus, I therefore elected to remove the cemented that extruded outside of the bone into the soft tissues. A 4-cm incision was made centered over the posteromedial aspect of the tibia. I dissected through subcutaneous tissues down to the level of the fascia. The saphenous nerve was not visible in the wound. Fascia was incised in line with the incision. The semimembranosus tendon was identified. We were able to palpate the cement just on the anterior aspect of the semimembranosus tendon. Cement was then removed with a combination of curettes and rongeurs. We irrigated out the wound with saline. Fluoroscopy was brought back in and we had removed the vast majority of the cement. The small amount that remained will resorb over time and further dissection was deemed to be not beneficial for the patient. Therefore, we irrigated out his wound. The fascia was closed with a running 0 Vicryl suture. The deep dermis was closed with interrupted 2-0 Vicryl and a 3-0 Monocryl was run subcuticularly for the skin. Next, we moved on to his arthroscopic procedure. An anterolateral working portal was created followed by a medial working portal under direct visualization. Diagnostic arthroscopy was performed, revealing the above findings. Once a diagnostic arthroscopy was complete, the electrocautery as well as the shaver were used to remove pathologic synovitis in the medial and lateral aspects of the knee. His medial meniscus tear was then extensively probed and was not repairable. The shaver was then used to trim the medial meniscus back to a stable margin. A biter was also used along the posterior horn, where he had some degenerative fraying. The knee was then irrigated with saline. The arthroscopic instruments were removed. The patient's portals were closed with inverted 3-0 Monocryl sutures. A compressive dressing was applied. The patient was awoke from anesthesia and transferred to recovery room in stable condition. POSTOPERATIVE COURSE: The patient will be discharged home from the recovery room. He will be weightbearing as tolerated with crutches for the next 2-3 days. He will be on aspirin for DVT prophylaxis. He will return to our clinic tomorrow for physical therapy to begin his rehabilitation following the knee arthroscopy debridement protocol. I attest to the content of the Intraoperative Record and any orders documented therein. Any exceptions are noted below. NAIDA
[2017-05-10 13:10] VITALS: BP 132/83; O2SAT 97
--- NOTE | 2017-05-27 07:16 | EDITING REQUIRED CODING QUERY ---
MENISCUS TEAR To promote full compliance with coding requirements relating to patient care physician participation is requested in all cases of jewelry sales representative uncertainty. Please assist us with the question(s) below: Please specify the type of Meniscus Tear by placing an "X" within the parenthesis (). If other please document type. (x ) Current Injury ( ) Old Injury ( ) Other: (Please Specify) Thank you Sara Onofre
== END | disposition home or self-care (01) ==
LOC: X.SURG 07:58
PROVIDERS: ATTEND Orthopaedic Surgery
DX: S83.241A Other tear of medial meniscus, current injury, right knee, initial encounter (principal); X58.XXXA Exposure to other specified factors, initial encounter; E78.5 Hyperlipidemia, unspecified; G47.33 Obstructive sleep apnea (adult) (pediatric); Z88.0 Allergy status to penicillin; Z98.890 Other specified postprocedural states; E66.9 Obesity, unspecified; Z68.31 Body mass index [BMI] 31.0-31.9, adult; Z81.8 Family history of other mental and behavioral disorders

== ENCOUNTER → 2017-06-03 | Outpatient (CLI) | payer OTHER ==
[~2017-06-03] VITALS: Ht 185.4 cm; Wt 112.4 kg
[~2017-06-03] MED LIST changes: -ATROPINE SULFATE 0.1 MG/ML 5ML SYR IV PRN; -DEXAMETHASONE SOD INJ 4 MG/ML VIAL ONE; -EpHEDrine SULFATE INJ 50 MG/ML AMP IV PRN; -EpINEphrine INJ 1MG/ML AMP 1 MG/ML AMP ONE; -FENTANYL CITRATE INJ 50 MCG/1 ML 2 ML VIAL ONE; -HYDROmorphone INJ 1 MG/ML SYR IV PRN; -LACTATED RINGER'S 1000ML 1,000 ML IV SCH; -LIDO 2%/EPINEPHRINE 1:100000 20 ML VIAL INFIL ONE; -LIDOCAINE HCL 2% 2 ML VIAL (20MG/ML) ONE; -METOCLOPRAMIDE HCL INJ 5 MG/ML 2 ML VIAL IV PRN; -MIDAZOLAM HCL 1 MG/ML 2ML VIAL ONE; -MoRPHine SULFATE 2 MG/ML CARP IV PRN; -MoRPHine SULFATE 4 MG/ML 1 ML CARP\\VIAL IV PRN; -ONDANSETRON INJ 2 MG/ML 2 ML VIAL IV PRN; -ONDANSETRON INJ 2 MG/ML 2 ML VIAL ONE; -OXYCODONE/ACETAMINOPHEN 5-325 TAB ONE; -OXYCODONE/ACETAMINOPHEN 5-325 TAB PO PRN; -PROPOFOL IV EMULSION 10 MG/ML 20 ML VIAL IV ONE; -ROPIVACAINE 0.5% 5 MG/ML 30 ML VIAL ONE; -SODIUM CHLORIDE 0.9% 1000ML 1,000 ML IV SCH
[2017-06-03 08:49] VITALS: BP 133/79; PULSE 87; Ht 185.4 cm; Wt 112.4 kg
== END | disposition home or self-care (01) ==
LOC: C.NEUR 08:28
PROVIDERS: ATTEND Internal Medicine Pulmonary Disease
DX: G47.33 Obstructive sleep apnea (adult) (pediatric) (principal); R41.3 Other amnesia; E55.9 Vitamin D deficiency, unspecified

== ENCOUNTER → 2017-07-02 | Outpatient (CLI) | payer OTHER | END | disposition home or self-care (01) | LOC: C.RDSM 08:42 | PROVIDERS: ATTEND Orthopaedic Surgery | DX: Z98.890 Other specified postprocedural states (principal) ==